=== PATIENT | female | born 1950 | race Caucasian/White ===

== ENCOUNTER 2018-04-26 11:27 | Outpatient (CLI) | payer MEDICARE ==
--- NOTE | 2018-04-26 13:37 | RAD ---
CHEST TWO VIEWS: History: Weight loss. Abdominal pain. Comparison: None. FINDINGS: Normal cardiac silhouette. The pulmonary vessels and hilum are normal. Costophrenic angles are clear. Lungs are hyperinflated. There appears to be an infiltrate in the right lower lobe. There is no pneu mothorax. There is scoliotic curvature of the distal thoracic and upper lumbar spines, incompletely e valuated. IMPRESSION: Opacities in the right lower lobe. Given patient's history, Further evaluation with CT is recommended . Code T POS: EVON
== END 2018-04-26 11:28 | disposition home or self-care (01) ==
LOC: BICRAD 11:27
PROVIDERS: ATTEND Internal Medicine Gastroenterology
DX: K59.09 Other constipation (principal); R68.81 Early satiety; R63.4 Abnormal weight loss; R91.8 Other nonspecific abnormal finding of lung field
CPT/HCPCS: 71046